=== PATIENT | male | born 1970 | race Caucasian/White ===

== ENCOUNTER 2018-03-11 12:41 | Inpatient (IN) | payer OTHER ==
[2018-03-11 13:08] VITALS: BMI 26.4
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
[2018-03-11] MEDS ORDERED: MAG HYDROX/AL HYDROX/SIMETH 30 ML UNIT-DOSE CUP PO PRN (15:30)
[2018-03-11] MEDS ORDERED: hydrOXYzine PAMOATE 50 MG CAPSULE (FP) PO PRN (15:30)
[2018-03-11] MEDS ORDERED: P-EPHED 60MG/TRIPROLIDI 2.5MG TABLET PO PRN (15:30)
[2018-03-11] MEDS ORDERED: LOPERAMIDE HCL 2 MG CAPSULE PO PRN (15:30)
[2018-03-11] MEDS ORDERED: MAGNESIUM CITRATE 300 ML BOTTLE PO PRN (15:30)
[2018-03-11] MEDS ORDERED: MAGNESIUM HYDROX 2400MG/30ML ORAL SUSPENSION 30 ML CUP PO PRN (15:30)
[2018-03-11] MEDS ORDERED: NICOTINE POLACRILEX 4 MG GUM BC PRN (15:30)
[2018-03-11] MEDS ORDERED: ACETAMINOPHEN 325 MG TABLET (FP) PO PRN (15:30)
[2018-03-11] MEDS ORDERED: chlordiazePOXIDE HCL 25 MG CAPSULE PO PRN (15:30)
[2018-03-11] MEDS ORDERED: guaiFENesin/D-METHORPHAN HB 10 ML UNIT-DOSE CUPS PO PRN (15:30)
[2018-03-11] MEDS ORDERED: MENTHOL/PHENOL 1 EACH UD MM PRN (15:30)
[2018-03-11] MEDS ORDERED: IBUPROFEN 400 MG TABLET (FP) PO PRN (15:30)
[2018-03-11] MEDS ORDERED: AMMONIUM LACTATE 12% LOTION 225 GM BOTTLE TP PRN (15:34)
[2018-03-11] MEDS ORDERED: COLLOIDAL OATMEAL 1 BAR EACH TP PRN (15:34)
[2018-03-11] MEDS ORDERED: chlordiazePOXIDE HCL 25 MG CAPSULE PO ONE (17:30)
[2018-03-11] MEDS ORDERED: BACITRACIN 0.9 GM PACKET TP ONE (17:30)
[2018-03-11] MEDS: chlordiazePOXIDE HCL 25 MG CAPSULE PO SCH ×2 (19:49→22:22)
[2018-03-11] MEDS ORDERED: MELATONIN 5 MG TABLETS PO PRN (22:00)
[2018-03-11] MEDS: THIAMINE HCL 100 MG TABLET (FP) PO SCH (22:22)
[2018-03-12 00:59] LABS: URINE APPEARANCE CLEAR; URINE BILIRUBIN NEGATIVE (<2.0 mg/dL); URINE COLOR YELLOW; URINE GLUCOSE (UA) NEGATIVE (NEGATIVE); URINE KETONE NEGATIVE (NEGATIVE); URINE LEUK ESTERASE NEGATIVE (NEGATIVE); URINE NITRITE NEGATIVE (NEGATIVE); URINE PROTEIN NEGATIVE (NEGATIVE); URINE UROBILINOGEN NEGATIVE mg/dL (0.2-1.0)
[2018-03-12] MEDS: chlordiazePOXIDE HCL 25 MG CAPSULE PO SCH ×4 (05:35→22:15)
[2018-03-12] MEDS: TAMSULOSIN HCL 0.4 MG CAP.ER.24H (FP) PO SCH (09:16)
[2018-03-12 10:08] LABS: HEMATOCRIT 41.7 % (35.4-49); HEMOGLOBIN 13.5 GM/dL (11.7-16.9); MCH 31.3 pg (25.7-33.7); MCHC 32.4 g/dl (32.0-35.9); MEAN CELL VOLUME 96.7 fl (80-96); MEAN PLT VOLUME 9.1 fl (7.5-11.1); PLATELET COUNT 194 K/MM3 (134-434); RBC 4.31 M/mm3 (4.00-5.60); WHITE BLOOD COUNT 13.9 K/mm3 (4.0-10.0)
[2018-03-12] MEDS: PRENATAL VITAMINS W/ FOLIC ACID TABLET (FP) PO SCH (10:14)
[2018-03-12] MEDS: BACITRACIN 0.9 GM PACKET TP SCH (10:14)
--- NOTE | 2018-03-12 10:14 | EKG ---
Test Reason : Blood Pressure : / mmHG Vent. Rate : 070 BPM Atrial Rate : 070 BPM P-R Int : 164 ms QRS Dur : 090 ms QT Int : 426 ms P-R-T Axes : 077 084 059 degrees QTc Int : 460 ms POOR DATA QUALITY, INTERPRETATION MAY BE ADVERSELY AFFECTED SINUS RHYTHM WITH FUSION COMPLEXES OTHERWISE NORMAL ECG NO PREVIOUS ECGS AVAILABLE Confirmed by KALIN LEROY MD ([id number]) on 03/12/2018 10:14:28 AM Referred By: Confirmed By:KALIN LEROY MD
[2018-03-12] MEDS: NICOTINE 21 MG/24 HOURS TOPICAL PATCH TD SCH (10:16)
[2018-03-12 10:19] LABS: ALBUMIN 3.7 g/dl (3.4-5.0); ALK PHOS 79 U/L (45-117); ANION GAP 8 MMOL/L (8-16); BILIRUBIN,TOTAL 0.4 mg/dL (0.2-1); BLOOD UREA NITROGEN 16 mg/dL (7-18); CALCIUM 9.1 mg/dL (8.5-10.1); CHLORIDE 106 mmol/L (98-107); CO2 26 mmol/L (21-32); CREATININE 1.2 mg/dL (0.55-1.3); GLUCOSE,RANDOM 101 mg/dL (74-106); POTASSIUM 4.8 mmol/L (3.5-5.1); SGOT/AST 23 U/L (15-37); SGPT/ALT 30 U/L (13-61); SODIUM 140 mmol/L (136-145); TOT PROT 7.1 g/dl (6.4-8.2)
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
[2018-03-12] MEDS ORDERED: hydrOXYzine PAMOATE 50 MG CAPSULE (FP) PO PRN (17:28)
[2018-03-12] MEDS ORDERED: traZODone HCL 50 MG TABLET (FP) PO PRN (17:28)
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
[2018-03-12] MEDS: LEVOTHYROXINE NA 25 MCG TABLET (FP) PO SCH (18:19)
[2018-03-12] MEDS: traZODone HCL 50 MG TABLET (FP) PO SCH (22:15)
[2018-03-12] MEDS: DIVALPROEX SODIUM 500 MG TABLET E.C. PO SCH (22:15)
[2018-03-12] MEDS: THIAMINE HCL 100 MG TABLET (FP) PO SCH (22:15)
[2018-03-12] MEDS: LITHIUM CARBONATE 300 MG CAPSULE (FP) PO SCH (22:15)
[2018-03-12] MEDS: ALBUTEROL SO4 8 GM HFA INHALER IH PRN (22:18)
[2018-03-13] MEDS: chlordiazePOXIDE HCL 25 MG CAPSULE PO SCH ×2 (05:10→10:18)
[2018-03-13] MEDS: LEVOTHYROXINE NA 25 MCG TABLET (FP) PO SCH (06:37)
[2018-03-13] MEDS: TAMSULOSIN HCL 0.4 MG CAP.ER.24H (FP) PO SCH (07:41)
[2018-03-13] MEDS: LITHIUM CARBONATE 300 MG CAPSULE (FP) PO SCH ×2 (10:17→22:06)
[2018-03-13] MEDS: ALBUTEROL SO4 8 GM HFA INHALER IH PRN (10:17)
[2018-03-13] MEDS: NICOTINE 21 MG/24 HOURS TOPICAL PATCH TD SCH (10:18)
[2018-03-13] MEDS: FLUoxetine HCL 20 MG CAPSULE (FP) PO SCH (10:18)
[2018-03-13] MEDS: BACITRACIN 0.9 GM PACKET TP SCH (10:18)
[2018-03-13] MEDS: DIVALPROEX SODIUM 500 MG TABLET E.C. PO SCH ×2 (10:18→22:06)
[2018-03-13] MEDS: PRENATAL VITAMINS W/ FOLIC ACID TABLET (FP) PO SCH (10:18)
[2018-03-13 11:11] LABS: BASO % 0.7 % (0-2.0); EOS % 6.9 % (0-4.5); HEMATOCRIT 37.7 % (35.4-49); HEMOGLOBIN 12.3 GM/dL (11.7-16.9); LYMPH % 21.6 % (8-40); MCH 31.7 pg (25.7-33.7); MCHC 32.6 g/dl (32.0-35.9); MEAN CELL VOLUME 97.3 fl (80-96); MEAN PLT VOLUME 8.6 fl (7.5-11.1); MONO % 9.3 % (3.8-10.2); NEUT % 61.5 % (42.8-82.8); PLATELET COUNT 155 K/MM3 (134-434); RBC 3.87 M/mm3 (4.00-5.60); RDW 14.6 % (11.9-15.9); WHITE BLOOD COUNT 8.7 K/mm3 (4.0-10.0)
--- NOTE | 2018-03-13 13:50 | PN ---
S CIWA - CIWA Score Nausea/Vomitin Muscle Tremors: 2 Anxiety: 2 Agitation: 2 Paroxysmal Sweats: 1-Minimal Palms Moist Orientation: 0-Oriented Tacttile Disturbances: 1-Very Mild Itch/Numbness Auditory Disturbances: 1-Very Mild Visual Disturbances: 1-Very Mild Sensitivity Headache: 2-Mild CIWA-Ar Total Score: 14 BHS Progress Note (SOAP) Subjective: alert,irritable,anxious,interrupted sleep,tremor Objective: 03/13/18 13:47 Vital Signs Temperature 97.2 F L 03/13/18 10:06 Pulse Rate 79 03/13/18 10:06 Respiratory Rate 18 03/13/18 10:06 Blood Pressure 114/71 03/13/18 10:06 O2 Sat by Pulse Oximetry (%) ekg poor quality nsr 70/min no chest pain,no sob,no dizziness Laboratory Last Values WBC 8.7 K/mm3 (4.0-10.0) 03/13/18 08:00 RBC 3.87 M/mm3 (4.00-5.60) L 03/13/18 08:00 Hgb 12.3 GM/dL (11.7-16.9) 03/13/18 08:00 Hct 37.7 % (35.4-49) 03/13/18 08:00 MCV 97.3 fl (80-96) H 03/13/18 08:00 MCH 31.7 pg (25.7-33.7) 03/13/18 08:00 MCHC 32.6 g/dl (32.0-35.9) 03/13/18 08:00 RDW 14.6 % (11.9-15.9) 03/13/18 08:00 Plt Count 155 K/MM3 (134-434) D 03/13/18 08:00 MPV 8.6 fl (7.5-11.1) 03/13/18 08:00 Absolute Neuts (auto) 5.3 K/mm3 (1.5-8.0) 03/13/18 08:00 Neutrophils % 61.5 % (42.8-82.8) 03/13/18 08:00 Lymphocytes % 21.6 % (8-40) 03/13/18 08:00 Monocytes % 9.3 % (3.8-10.2) 03/13/18 08:00 Eosinophils % 6.9 % (0-4.5) H 03/13/18 08:00 Basophils % 0.7 % (0-2.0) 03/13/18 08:00 Nucleated RBC % 0 % (0-0) 03/13/18 08:00 Sodium 140 mmol/L (136-145) 03/12/18 06:00 Potassium 4.8 mmol/L (3.5-5.1) 03/12/18 06:00 Chloride 106 mmol/L (98-107) 03/12/18 06:00 Carbon Dioxide 26 mmol/L (21-32) 03/12/18 06:00 Anion Gap 8 MMOL/L (8-16) 03/12/18 06:00 BUN 16 mg/dL (7-18) 03/12/18 06:00 Creatinine 1.2 mg/dL (0.55-1.3) 03/12/18 06:00 Creat Clearance w eGFR > 60 (>60) 03/12/18 06:00 Random Glucose 101 mg/dL (74-106) 03/12/18 06:00 Calcium 9.1 mg/dL (8.5-10.1) 03/12/18 06:00 Total Bilirubin 0.4 mg/dL (0.2-1) 03/12/18 06:00 AST 23 U/L (15-37) 03/12/18 06:00 ALT 30 U/L (13-61) 03/12/18 06:00 Alkaline Phosphatase 79 U/L (45-117) 03/12/18 06:00 Total Protein 7.1 g/dl (6.4-8.2) 03/12/18 06:00 Albumin 3.7 g/dl (3.4-5.0) 03/12/18 06:00 Urine Color Yellow 03/12/18 00:30 Urine Appearance Clear 03/12/18 00:30 Urine pH 5.0 (5.0-8.0) 03/12/18 00:30 Ur Specific [place] 1.013 (1.010-1.035) 03/12/18 00:30 Urine Protein Negative (NEGATIVE) 03/12/18 00:30 Urine Glucose (UA) Negative (NEGATIVE) 03/12/18 00:30 Urine Ketones Negative (NEGATIVE) 03/12/18 00:30 Urine Blood Negative (NEGATIVE) 03/12/18 00:30 Urine Nitrite Negative (NEGATIVE) 03/12/18 00:30 Urine Bilirubin Negative (<2.0 mg/dL) 03/12/18 00:30 Urine Urobilinogen Negative mg/dL (0.2-1.0) 03/12/18 00:30 Ur Leukocyte Esterase Negative (NEGATIVE) 03/12/18 00:30 Valproic Acid 5.4 ug/ml (50-100) L 03/13/18 08:10 [place] 0.3 MEQ/L (0.6-1.2) L 03/12/18 12:00 RPR Titer Nonreactive (NONREACTIVE) 03/12/18 06:00 Assessment: 03/13/18 13:49 withdrawal symptom Plan: continue detox
[2018-03-13] MEDS: chlordiazePOXIDE 5 MG CAPSULE PO SCH ×2 (17:31→22:06)
[2018-03-13] MEDS: traZODone HCL 50 MG TABLET (FP) PO SCH (22:06)
[2018-03-13] MEDS: THIAMINE HCL 100 MG TABLET (FP) PO SCH (22:06)
[2018-03-14] MEDS: chlordiazePOXIDE 5 MG CAPSULE PO SCH ×2 (05:17→10:22)
[2018-03-14] MEDS: LEVOTHYROXINE NA 25 MCG TABLET (FP) PO SCH (06:45)
[2018-03-14] MEDS: TAMSULOSIN HCL 0.4 MG CAP.ER.24H (FP) PO SCH (07:37)
[2018-03-14] MEDS: FLUoxetine HCL 20 MG CAPSULE (FP) PO SCH (10:21)
[2018-03-14] MEDS: NICOTINE 21 MG/24 HOURS TOPICAL PATCH TD SCH (10:22)
[2018-03-14] MEDS: LITHIUM CARBONATE 300 MG CAPSULE (FP) PO SCH ×2 (10:22→22:29)
[2018-03-14] MEDS: DIVALPROEX SODIUM 500 MG TABLET E.C. PO SCH ×2 (10:22→22:29)
[2018-03-14] MEDS: BACITRACIN 0.9 GM PACKET TP SCH (10:22)
[2018-03-14] MEDS: PRENATAL VITAMINS W/ FOLIC ACID TABLET (FP) PO SCH (10:22)
--- NOTE | 2018-03-14 13:46 | PN ---
BHS Progress Note (SOAP) Subjective: Tremor, chills, interrupted sleep Objective: 03/14/18 13:44 Last Vital Signs Temp Pulse Resp BP Pulse Ox 97.6 F 80 20 104/71 03/14/18 09:30 03/14/18 09:30 03/14/18 09:30 03/14/18 09:30 Laboratory Tests 03/12/18 03/12/18 03/12/18 00:30 06:00 06:00 WBC 13.9 H RBC 4.31 Hgb 13.5 Hct 41.7 MCV 96.7 H MCH 31.3 MCHC 32.4 RDW 15.0 Plt Count 194 MPV 9.1 Absolute Neuts (auto) Neutrophils % Lymphocytes % Monocytes % Eosinophils % Basophils % Nucleated RBC % Sodium 140 Potassium 4.8 Chloride 106 Carbon Dioxide 26 Anion Gap 8 BUN 16 Creatinine 1.2 Creat Clearance w eGFR > 60 Random Glucose 101 Calcium 9.1 Total Bilirubin 0.4 AST 23 ALT 30 Alkaline Phosphatase 79 Total Protein 7.1 Albumin 3.7 Urine Color Yellow Urine Appearance Clear Urine pH 5.0 Ur Specific [place] 1.013 Urine Protein Negative Urine Glucose (UA) Negative Urine Ketones Negative Urine Blood Negative Urine Nitrite Negative Urine Bilirubin Negative Urine Urobilinogen Negative Ur Leukocyte Esterase Negative Valproic Acid [place] RPR Titer 03/12/18 03/12/18 03/13/18 06:00 12:00 08:00 WBC 8.7 RBC 3.87 L Hgb 12.3 Hct 37.7 MCV 97.3 H MCH 31.7 MCHC 32.6 RDW 14.6 Plt Count 155 D MPV 8.6 Absolute Neuts (auto) 5.3 Neutrophils % 61.5 Lymphocytes % 21.6 Monocytes % 9.3 Eosinophils % 6.9 H Basophils % 0.7 Nucleated RBC % 0 Sodium Potassium Chloride Carbon Dioxide Anion Gap BUN Creatinine Creat Clearance w eGFR Random Glucose Calcium Total Bilirubin AST ALT Alkaline Phosphatase Total Protein Albumin Urine Color Urine Appearance Urine pH Ur Specific [place] Urine Protein Urine Glucose (UA) Urine Ketones Urine Blood Urine Nitrite Urine Bilirubin Urine Urobilinogen Ur Leukocyte Esterase Valproic Acid [place] 0.3 L RPR Titer Nonreactive 03/13/18 08:10 WBC RBC Hgb Hct MCV MCH MCHC RDW Plt Count MPV Absolute Neuts (auto) Neutrophils % Lymphocytes % Monocytes % Eosinophils % Basophils % Nucleated RBC % Sodium Potassium Chloride Carbon Dioxide Anion Gap BUN Creatinine Creat Clearance w eGFR Random Glucose Calcium Total Bilirubin AST ALT Alkaline Phosphatase Total Protein Albumin Urine Color Urine Appearance Urine pH Ur Specific [place] Urine Protein Urine Glucose (UA) Urine Ketones Urine Blood Urine Nitrite Urine Bilirubin Urine Urobilinogen Ur Leukocyte Esterase Valproic Acid 5.4 L [place] RPR Titer Labs reviewed Assessment: 03/14/18 13:45 Withdrawal sxs Plan: Continue detox Encouraged PO water intake
[2018-03-14] MEDS: chlordiazePOXIDE HCL 10 MG CAPSULE PO SCH ×2 (17:39→22:29)
[2018-03-14] MEDS: THIAMINE HCL 100 MG TABLET (FP) PO SCH (22:29)
[2018-03-14] MEDS: traZODone HCL 50 MG TABLET (FP) PO SCH (22:29)
[2018-03-15] MEDS: chlordiazePOXIDE HCL 10 MG CAPSULE PO SCH ×2 (05:12→10:29)
[2018-03-15] MEDS: LEVOTHYROXINE NA 25 MCG TABLET (FP) PO SCH (06:29)
--- NOTE | 2018-03-15 08:55 | DS ---
[facility] Detox Discharge Summary Admission Date: 03/11/18 Discharge Date: 03/15/18 - History Present History: Alcohol Dependence Additional Comments: Patient medically stable. Patient to follow up with primary care provider in 1 - 2 weeks. - Physical Exam Results Vital Signs: Vital Signs Temperature 97.5 F L 03/15/18 05:59 Pulse Rate 58 L 03/15/18 05:59 Respiratory Rate 18 03/15/18 06:30 Blood Pressure 98/56 L 03/15/18 05:59 O2 Sat by Pulse Oximetry (%) Pertinent Admission Physical Exam Findings: Vital Signs Temperature 96.4 F L 03/15/18 09:11 Pulse Rate 57 L 03/15/18 09:11 Respiratory Rate 18 03/15/18 09:11 Blood Pressure 108/63 03/15/18 09:11 O2 Sat by Pulse Oximetry (%) Laboratory Last Values WBC 8.7 K/mm3 (4.0-10.0) 03/13/18 08:00 RBC 3.87 M/mm3 (4.00-5.60) L 03/13/18 08:00 Hgb 12.3 GM/dL (11.7-16.9) 03/13/18 08:00 Hct 37.7 % (35.4-49) 03/13/18 08:00 MCV 97.3 fl (80-96) H 03/13/18 08:00 MCH 31.7 pg (25.7-33.7) 03/13/18 08:00 MCHC 32.6 g/dl (32.0-35.9) 03/13/18 08:00 RDW 14.6 % (11.9-15.9) 03/13/18 08:00 Plt Count 155 K/MM3 (134-434) D 03/13/18 08:00 MPV 8.6 fl (7.5-11.1) 03/13/18 08:00 Absolute Neuts (auto) 5.3 K/mm3 (1.5-8.0) 03/13/18 08:00 Neutrophils % 61.5 % (42.8-82.8) 03/13/18 08:00 Lymphocytes % 21.6 % (8-40) 03/13/18 08:00 Monocytes % 9.3 % (3.8-10.2) 03/13/18 08:00 Eosinophils % 6.9 % (0-4.5) H 03/13/18 08:00 Basophils % 0.7 % (0-2.0) 03/13/18 08:00 Nucleated RBC % 0 % (0-0) 03/13/18 08:00 Sodium 140 mmol/L (136-145) 03/12/18 06:00 Potassium 4.8 mmol/L (3.5-5.1) 03/12/18 06:00 Chloride 106 mmol/L (98-107) 03/12/18 06:00 Carbon Dioxide 26 mmol/L (21-32) 03/12/18 06:00 Anion Gap 8 MMOL/L (8-16) 03/12/18 06:00 BUN 16 mg/dL (7-18) 03/12/18 06:00 Creatinine 1.2 mg/dL (0.55-1.3) 03/12/18 06:00 Creat Clearance w eGFR > 60 (>60) 03/12/18 06:00 Random Glucose 101 mg/dL (74-106) 03/12/18 06:00 Calcium 9.1 mg/dL (8.5-10.1) 03/12/18 06:00 Total Bilirubin 0.4 mg/dL (0.2-1) 03/12/18 06:00 AST 23 U/L (15-37) 03/12/18 06:00 ALT 30 U/L (13-61) 03/12/18 06:00 Alkaline Phosphatase 79 U/L (45-117) 03/12/18 06:00 Total Protein 7.1 g/dl (6.4-8.2) 03/12/18 06:00 Albumin 3.7 g/dl (3.4-5.0) 03/12/18 06:00 Urine Color Yellow 03/12/18 00:30 Urine Appearance Clear 03/12/18 00:30 Urine pH 5.0 (5.0-8.0) 03/12/18 00:30 Ur Specific [place] 1.013 (1.010-1.035) 03/12/18 00:30 Urine Protein Negative (NEGATIVE) 03/12/18 00:30 Urine Glucose (UA) Negative (NEGATIVE) 03/12/18 00:30 Urine Ketones Negative (NEGATIVE) 03/12/18 00:30 Urine Blood Negative (NEGATIVE) 03/12/18 00:30 Urine Nitrite Negative (NEGATIVE) 03/12/18 00:30 Urine Bilirubin Negative (<2.0 mg/dL) 03/12/18 00:30 Urine Urobilinogen Negative mg/dL (0.2-1.0) 03/12/18 00:30 Ur Leukocyte Esterase Negative (NEGATIVE) 03/12/18 00:30 Valproic Acid 5.4 ug/ml (50-100) L 03/13/18 08:10 [place] 0.3 MEQ/L (0.6-1.2) L 03/12/18 12:00 RPR Titer Nonreactive (NONREACTIVE) 03/12/18 06:00 - Treatment Hospital Course: Detox Protocol Followed, Detoxed Safely, Responded well, Discharged Condition Good, Rehab Referral Accepted Patient has Accepted a Rehab Referral to: [facility] - Medication Discharge Medications: Ambulatory Orders Albuterol Sulfate Inhaler - [Ventolin Hfa Inhaler -] 2 inh PO Q4H PRN 03/11/18 Divalproex Sodium 1,000 mg PO Q12H 03/11/18 Fluoxetine HCl [Prozac -] 60 mg PO DAILY 03/11/18 Levothyroxine [Synthroid -] 50 mcg PO DAILY 03/11/18 [place] Carbonate [Eskalith -] 300 mg PO AM 03/11/18 [place] Carbonate [Eskalith -] 600 mg PO HS 03/11/18 Tamsulosin HCl [Flomax] 0.4 mg PO DAILY 03/11/18 hydrOXYzine PAMOATE [Vistaril -] 50 mg PO TID PRN 03/11/18 traZODone HCL [Trazodone HCl] 50 mg PO HS PRN 03/11/18 Albuterol Sulfate Inhaler - [Ventolin HFA Inhaler -] 2 puff IH Q4H PRN #1 inhaler 03/15/18 Levothyroxine [Synthroid -] 50 mcg PO ACBK #30 tablet 03/15/18 Tamsulosin HCl [Flomax -] 0.4 mg PO DAILY@0830 #30 cap.er.[id number] 03/15/18 - Diagnosis (1) Alcohol dependence with withdrawal Current Visit: Yes Status: Acute Qualifiers: Complication of substance-induced condition: uncomplicated Qualified Code(s ): F10.230 - Alcohol dependence with withdrawal, uncomplicated (2) BPH (benign prostatic hyperplasia) Current Visit: Yes Status: Chronic Qualifiers: Lower urinary tract symptom presence: symptoms present Lower urinary tract symptom detail: unspecified Qualified Code(s): N40.1 - Benign prostatic hyperplasia with lower urinary tract symptoms (3) COPD (chronic obstructive pulmonary disease) Current Visit: Yes Status: Chronic Qualifiers: COPD type: unspecified COPD Qualified Code(s): J44.9 - Chronic obstructive pulmonary disease, unspecified (4) Hypothyroidism Current Visit: Yes Status: Chronic Qualifiers: Hypothyroidism type: acquired Qualified Code(s): E03.9 - Hypothyroidism, unspecified (5) Nicotine dependence Current Visit: Yes Status: Chronic Qualifiers: Nicotine product type: cigarettes Substance use status: uncomplicated Qualified Code(s): F17.210 - Nicotine dependence, cigarettes, uncomplicated (6) Non-compliant patient Current Visit: Yes Status: Chronic - AMA Did Patient Leave Against Medical Advice: No
[2018-03-15] MEDS: TAMSULOSIN HCL 0.4 MG CAP.ER.24H (FP) PO SCH (09:28)
[2018-03-15] MEDS: LITHIUM CARBONATE 300 MG CAPSULE (FP) PO SCH (10:27)
[2018-03-15] MEDS: DIVALPROEX SODIUM 500 MG TABLET E.C. PO SCH (10:27)
[2018-03-15] MEDS: BACITRACIN 0.9 GM PACKET TP SCH (10:27)
[2018-03-15] MEDS: FLUoxetine HCL 20 MG CAPSULE (FP) PO SCH (10:28)
[2018-03-15] MEDS: PRENATAL VITAMINS W/ FOLIC ACID TABLET (FP) PO SCH (10:28)
[2018-03-15] MEDS: NICOTINE 21 MG/24 HOURS TOPICAL PATCH TD SCH (10:28)
--- NOTE | 2018-03-15 15:22 | PN ---
[facility] Progress Note Note: Vital Signs Temperature 97.1 F L 03/15/18 13:45 Pulse Rate 72 03/15/18 13:45 Respiratory Rate 18 03/15/18 13:45 Blood Pressure 118/73 03/15/18 13:45 O2 Sat by Pulse Oximetry (%) cancel d/c today. patient is scheduled to attend rehab tomorrow morning at [facility]. continue to monitor
[2018-03-15 17:31] VITALS: BP 108/66; PULSE 57; TEMP 97.4
== END 2018-03-15 18:01 | disposition other institution (70) | DRG 775 ==
LOC: YASAS 12:41 → Y3N 17:05
PROC: HZ2ZZZZ Detoxification Services for Substance Abuse Treatment (ICD-10-PCS; principal; 2018-03-11)
DX: F10.230 Alcohol dependence with withdrawal, uncomplicated (principal); F17.210 Nicotine dependence, cigarettes, uncomplicated; F31.9 Bipolar disorder, unspecified; F19.24 Other psychoactive substance dependence with psychoactive substance-induced mood disorder; J45.909 Unspecified asthma, uncomplicated; J44.9 Chronic obstructive pulmonary disease, unspecified; N40.0 Benign prostatic hyperplasia without lower urinary tract symptoms; E03.9 Hypothyroidism, unspecified; G47.00 Insomnia, unspecified; D72.829 Elevated white blood cell count, unspecified; Z91.19 Patient's noncompliance with other medical treatment and regimen; Z91.5 Personal history of self-harm; Z59.0 Homelessness
CPT/HCPCS: 36415; 80053; 80164; 80178; 81003; 85025; 85027; 86593; 93005; 93010

== ENCOUNTER 2018-03-15 17:45 | Inpatient (IN) | payer OTHER ==
--- NOTE | 2018-03-15 16:20 | HP ---
[facility] Rehab Assess/Revision - Admission History Admitted to Rehab from: [facility] [place] Date of Admission to Rehab: 03/15/18 - Findings Detox History & Physical reviewed: Yes Concur with findings: Yes Inpatient Rehab Admission - Initial Determination Are CD services needed?: Yes Free of communicable disease: Yes Not in need of hospitalization: Yes - Rehab Admission Criteria Previous failed treatment: Yes Poor recovery environment: Yes Comorbidities: Yes Lacks judgement: Yes Patient is meeting Inpatient Rehab admission criteria:: Yes
[~2018-03-15 17:45] MED LIST: ACETAMINOPHEN 325 MG TABLET (FP) PO PRN; IBUPROFEN 400 MG TABLET (FP) PO PRN; LOPERAMIDE HCL 2 MG CAPSULE PO PRN; MAG HYDROX/AL HYDROX/SIMETH 30 ML UNIT-DOSE CUP PO PRN; MAGNESIUM CITRATE 300 ML BOTTLE PO PRN; MAGNESIUM HYDROX 2400MG/30ML ORAL SUSPENSION 30 ML CUP PO PRN; MENTHOL/PHENOL 1 EACH UD MM PRN; P-EPHED 60MG/TRIPROLIDI 2.5MG TABLET PO PRN; guaiFENesin/D-METHORPHAN HB 10 ML UNIT-DOSE CUPS PO PRN
--- NOTE | 2018-03-15 20:20 | PN ---
[facility] Progress Note Note: Psychiatrist transition lead note: Called by nursing staff to order medication for newly admitted patient from detox. Medication reconciliation done. Depakote 1000 mg po BID, [place] 300 mg daily & 600 mg HS, Trazadone 50 mg po HS, Prozac 60 mg po daily and Vistaril 50 mg po TID ordered
[2018-03-15] MEDS ORDERED: MELATONIN 5 MG TABLETS PO PRN (22:00)
[2018-03-15] MEDS: LITHIUM CARBONATE 300 MG CAPSULE (FP) PO SCH (22:25)
[2018-03-15] MEDS: DIVALPROEX SODIUM 500 MG TABLET E.C. PO SCH (22:25)
[2018-03-15] MEDS: THIAMINE HCL 100 MG TABLET (FP) PO SCH (22:25)
[2018-03-15] MEDS: traZODone HCL 50 MG TABLET (FP) PO PRN (22:27)
[2018-03-16] MEDS: LITHIUM CARBONATE 300 MG CAPSULE (FP) PO SCH ×2 (06:07→21:43)
--- NOTE | 2018-03-16 06:29 | HP ---
Psychiatrist Admission - Data Date of interview: 03/16/18 Admission source: 3N Identifying data: This is the first [facility] admission for this 47 years old male, father of a 25 years daughter, unemployed, homeless Medical History: Significant for COPD, hypothyroidism, decreased vision in right eye and benign prostatic hyperplasia (BPH) and history of fracture of right orbit. Smokes 10 cigarettes daily Psychiatric History: Patient repports being diagnosed with Bipolar Disorder and OCD in 2016. Reports history of multiple psychiatric hospitalizations ([facility], [facility], [facility]). Told medical writer that from November 2017, he has had 4 admissions 2 each to [facility] and [facility]. Most recent one ws in [facility] in January 2018 for depression, anxiety and trying to burn himself. He was discharged on [place] 300 mg daily & 600 mg HS, Depakote 1000 mg po BID, Prozac 60 mg po daily, Trazadone 50 mg po HS and Vistaril 50 mg po TID prn. Reports taking medications on & off for the past 2 weeks. Reports receiving psychiatric outpatient services at the [facility] in [facility]. He saw Dr Escobar on 03/12/18 while in detox and he was prescribed Depakote 500 mg po BID, Prozac 20 mg po daily, [place] 300 mg po BID, Vistaril 50 mg po TID prn. Patient reports one suicide attempt via deliberate ingestion of industrial ecologist (2014). At present, reports feeling depressed, anxious and sleeping poorly Physical/Sexual Abuse/Trauma History: Denies history of emotional, physical or sexual abuse as wel as DV relationship. No service Additional Comment: Reports multile previous arrsets including 3 felony convictions on charges of DWI. Denie being on parole/probation Vital Signs: Vital Signs - 24 hr 03/15/18 03/16/18 03/16/18 18:17 00:30 03:29 Temperature 97.8 F Pulse Rate 71 Respiratory 18 16 16 Rate Blood Pressure 113/58 L Allergies/Adverse Reactions: Allergies Allergy/AdvReac Type Severity Reaction Status Date / Time No Known Allergies Allergy Verified 03/11/18 16:24 Date of last physical exam: 03/11/18 Concur with the findings of this exam: Yes - Substance Abuse/Tx History Hx Alcohol Use: Yes Substance Use Type: Alcohol (Started drinking alcohol at age 22, consumes a nip of vodka & 8x 25oz of erica daddy daily. Last drank on 03/10/18) Hx Substance Use Treatment: Yes (2 previous inpt detox admissions. First inpt rehab) Mental Status Exam - Mental Status Exam Alert and Oriented to: Time, Place, Person Cognitive Function: Fair Patient Appearance: Well Groomed Mood: Depressed, Anxious Affect: Appropriate Patient Behavior: Cooperative Speech Pattern: Clear Voice Loudness: Normal Thought Process: Intact, Goal Oriented Thought Disorder: Not Present Hallucinations: Denies Suicidal Ideation: Denies Homicidal Ideation: Denies Insight/Judgement: Fair Sleep: Poorly Appetite: Good Muscle strength/Tone: Normal Gait/Station: Normal Psychiatric Findings - Problem List ([place] 1, 2,3) (1) Alcohol dependence Current Visit: Yes Status: Acute (2) Nicotine dependence Current Visit: No Status: Chronic Qualifiers: Nicotine product type: cigarettes Substance use status: uncomplicated Qualified Code(s): F17.210 - Nicotine dependence, cigarettes, uncomplicated (3) Bipolar disorder Current Visit: No Status: Chronic (4) OCD (obsessive compulsive disorder) Current Visit: Yes Status: Chronic (5) Alcohol-induced mood disorder Current Visit: Yes Status: Acute (6) Alcohol-induced sleep disorder Current Visit: Yes Status: Acute (7) BPH (benign prostatic hyperplasia) Current Visit: No Status: Chronic Qualifiers: Lower urinary tract symptom presence: symptoms present Lower urinary tract symptom detail: unspecified Qualified Code(s): N40.1 - Benign prostatic hyperplasia with lower urinary tract symptoms (8) COPD (chronic obstructive pulmonary disease) Current Visit: No Status: Chronic Qualifiers: COPD type: unspecified COPD Qualified Code(s): J44.9 - Chronic obstructive pulmonary disease, unspecified (9) Hypothyroidism Current Visit: No Status: Chronic Qualifiers: Hypothyroidism type: acquired Qualified Code(s): E03.9 - Hypothyroidism, unspecified - Initial Treatment Plan Initial Treatment Plan: 1) Start Prozac 60 mg po daily, Depakote 1000 mg po BID ( level 5.4 on 03/13/18), [place] 300 mg daily & 600 mg HS(level 0.3 on 03/12/18 ), Trazadone 50 mg po HS and Vistaril 50 mg po TID prn. 2) Repeat chemistry, Valproic Acid anf [place] levels on 03/02/18. 3) Monitor progress
[2018-03-16] MEDS: DIVALPROEX SODIUM 500 MG TABLET E.C. PO SCH ×2 (07:43→21:43)
[2018-03-16] MEDS: FLUoxetine HCL 20 MG CAPSULE (FP) PO SCH (09:42)
[2018-03-16] MEDS: PRENATAL VITAMINS W/ FOLIC ACID TABLET (FP) PO SCH (09:42)
[2018-03-16] MEDS: THIAMINE HCL 100 MG TABLET (FP) PO SCH (21:43)
[2018-03-16] MEDS: traZODone HCL 50 MG TABLET (FP) PO PRN (21:43)
[2018-03-17] MEDS ORDERED: LEVOTHYROXINE NA 25 MCG TABLET (FP) PO ONE (08:28)
[2018-03-17] MEDS: DIVALPROEX SODIUM 500 MG TABLET E.C. PO SCH ×2 (09:46→20:58)
[2018-03-17] MEDS: FLUoxetine HCL 20 MG CAPSULE (FP) PO SCH (09:46)
[2018-03-17] MEDS: PRENATAL VITAMINS W/ FOLIC ACID TABLET (FP) PO SCH (09:47)
[2018-03-17] MEDS: TAMSULOSIN HCL 0.4 MG CAP PO SCH (09:47)
[2018-03-17] MEDS: LITHIUM CARBONATE 300 MG CAPSULE (FP) PO SCH ×2 (09:47→21:00)
[2018-03-17] MEDS: THIAMINE HCL 100 MG TABLET (FP) PO SCH (21:00)
[2018-03-18] MEDS: LEVOTHYROXINE NA 25 MCG TABLET (FP) PO SCH (06:20)
[2018-03-18] MEDS: LITHIUM CARBONATE 300 MG CAPSULE (FP) PO SCH ×2 (06:20→21:30)
[2018-03-18] MEDS ORDERED: traZODone HCL 50 MG TABLET (FP) PO PRN (08:57)
[2018-03-18] MEDS: FLUoxetine HCL 20 MG CAPSULE (FP) PO SCH (09:32)
[2018-03-18] MEDS: DIVALPROEX SODIUM 500 MG TABLET E.C. PO SCH ×3 (09:32→21:30)
[2018-03-18] MEDS: PRENATAL VITAMINS W/ FOLIC ACID TABLET (FP) PO SCH (09:32)
[2018-03-18] MEDS: TAMSULOSIN HCL 0.4 MG CAP PO SCH (09:33)
[2018-03-18] MEDS ORDERED: LITHIUM CARBONATE 300 MG CAPSULE (FP) PO SCH (10:00)
[2018-03-18] MEDS: hydrOXYzine PAMOATE 50 MG CAPSULE (FP) PO PRN ×2 (14:07→21:30)
[2018-03-18] MEDS: THIAMINE HCL 100 MG TABLET (FP) PO SCH (21:30)
[2018-03-18] MEDS: traZODone HCL 50 MG TABLET (FP) PO SCH (21:31)
[2018-03-19] MEDS: LEVOTHYROXINE NA 25 MCG TABLET (FP) PO SCH (06:17)
[2018-03-19] MEDS: TAMSULOSIN HCL 0.4 MG CAP PO SCH (09:30)
[2018-03-19] MEDS: FLUoxetine HCL 20 MG CAPSULE (FP) PO SCH (09:31)
[2018-03-19] MEDS: DIVALPROEX SODIUM 500 MG TABLET E.C. PO SCH ×2 (09:31→21:35)
[2018-03-19] MEDS: LITHIUM CARBONATE 300 MG CAPSULE (FP) PO SCH ×2 (09:31→21:35)
[2018-03-19] MEDS: PRENATAL VITAMINS W/ FOLIC ACID TABLET (FP) PO SCH (09:31)
[2018-03-19] MEDS: hydrOXYzine PAMOATE 50 MG CAPSULE (FP) PO PRN (21:35)
[2018-03-19] MEDS: traZODone HCL 50 MG TABLET (FP) PO SCH (21:35)
[2018-03-19] MEDS: THIAMINE HCL 100 MG TABLET (FP) PO SCH (21:35)
[2018-03-20] MEDS: LEVOTHYROXINE NA 25 MCG TABLET (FP) PO SCH (06:03)
[2018-03-20] MEDS: TAMSULOSIN HCL 0.4 MG CAP PO SCH (07:49)
[2018-03-20] MEDS: PRENATAL VITAMINS W/ FOLIC ACID TABLET (FP) PO SCH (09:32)
[2018-03-20] MEDS: FLUoxetine HCL 20 MG CAPSULE (FP) PO SCH (09:32)
[2018-03-20] MEDS: LITHIUM CARBONATE 300 MG CAPSULE (FP) PO SCH ×2 (09:32→21:08)
[2018-03-20] MEDS: DIVALPROEX SODIUM 500 MG TABLET E.C. PO SCH ×2 (09:32→21:08)
[2018-03-20] MEDS: THIAMINE HCL 100 MG TABLET (FP) PO SCH (21:08)
[2018-03-20] MEDS: traZODone HCL 50 MG TABLET (FP) PO SCH (21:08)
[2018-03-21] MEDS: LEVOTHYROXINE NA 25 MCG TABLET (FP) PO SCH (06:07)
[2018-03-21] MEDS: TAMSULOSIN HCL 0.4 MG CAP PO SCH (07:46)
[2018-03-21] MEDS: DIVALPROEX SODIUM 500 MG TABLET E.C. PO SCH ×2 (09:36→21:02)
[2018-03-21] MEDS: LITHIUM CARBONATE 300 MG CAPSULE (FP) PO SCH ×2 (09:37→21:02)
[2018-03-21] MEDS: FLUoxetine HCL 20 MG CAPSULE (FP) PO SCH (09:37)
[2018-03-21] MEDS: PRENATAL VITAMINS W/ FOLIC ACID TABLET (FP) PO SCH (09:37)
[2018-03-21] MEDS: THIAMINE HCL 100 MG TABLET (FP) PO SCH (21:02)
[2018-03-21] MEDS: traZODone HCL 50 MG TABLET (FP) PO SCH (21:02)
[2018-03-22] MEDS: LEVOTHYROXINE NA 25 MCG TABLET (FP) PO SCH (06:10)
[2018-03-22] MEDS: TAMSULOSIN HCL 0.4 MG CAP PO SCH (08:42)
[2018-03-22] MEDS: PRENATAL VITAMINS W/ FOLIC ACID TABLET (FP) PO SCH (09:42)
[2018-03-22] MEDS: LITHIUM CARBONATE 300 MG CAPSULE (FP) PO SCH ×2 (09:42→21:28)
[2018-03-22] MEDS: FLUoxetine HCL 20 MG CAPSULE (FP) PO SCH (09:42)
[2018-03-22] MEDS: DIVALPROEX SODIUM 500 MG TABLET E.C. PO SCH ×2 (09:42→21:28)
[2018-03-22] MEDS: hydrOXYzine PAMOATE 50 MG CAPSULE (FP) PO PRN (21:28)
[2018-03-22] MEDS: traZODone HCL 50 MG TABLET (FP) PO SCH (21:28)
[2018-03-22] MEDS: THIAMINE HCL 100 MG TABLET (FP) PO SCH (21:28)
[2018-03-23] MEDS: LEVOTHYROXINE NA 25 MCG TABLET (FP) PO SCH (06:35)
[2018-03-23] MEDS: TAMSULOSIN HCL 0.4 MG CAP PO SCH (07:45)
[2018-03-23] MEDS: PRENATAL VITAMINS W/ FOLIC ACID TABLET (FP) PO SCH (09:52)
[2018-03-23] MEDS: FLUoxetine HCL 20 MG CAPSULE (FP) PO SCH (09:52)
[2018-03-23] MEDS: DIVALPROEX SODIUM 500 MG TABLET E.C. PO SCH ×2 (09:52→21:38)
[2018-03-23] MEDS: hydrOXYzine PAMOATE 50 MG CAPSULE (FP) PO PRN ×2 (09:53→21:38)
[2018-03-23] MEDS: LITHIUM CARBONATE 300 MG CAPSULE (FP) PO SCH ×2 (09:53→21:40)
[2018-03-23] MEDS: traZODone HCL 50 MG TABLET (FP) PO SCH (21:38)
[2018-03-23] MEDS: THIAMINE HCL 100 MG TABLET (FP) PO SCH (21:38)
[2018-03-24] MEDS: LEVOTHYROXINE NA 25 MCG TABLET (FP) PO SCH (05:59)
[2018-03-24] MEDS: TAMSULOSIN HCL 0.4 MG CAP PO SCH (09:30)
[2018-03-24] MEDS: FLUoxetine HCL 20 MG CAPSULE (FP) PO SCH (09:40)
[2018-03-24] MEDS: LITHIUM CARBONATE 300 MG CAPSULE (FP) PO SCH ×2 (09:41→21:38)
[2018-03-24] MEDS: DIVALPROEX SODIUM 500 MG TABLET E.C. PO SCH ×2 (09:41→21:38)
[2018-03-24] MEDS: PRENATAL VITAMINS W/ FOLIC ACID TABLET (FP) PO SCH (09:41)
[2018-03-24] MEDS: hydrOXYzine PAMOATE 50 MG CAPSULE (FP) PO PRN (12:10)
[2018-03-24] MEDS: THIAMINE HCL 100 MG TABLET (FP) PO SCH (21:38)
[2018-03-24] MEDS: traZODone HCL 50 MG TABLET (FP) PO SCH (21:38)
[2018-03-25] MEDS: LEVOTHYROXINE NA 25 MCG TABLET (FP) PO SCH (06:08)
[2018-03-25] MEDS: TAMSULOSIN HCL 0.4 MG CAP PO SCH (07:46)
[2018-03-25] MEDS: DIVALPROEX SODIUM 500 MG TABLET E.C. PO SCH ×2 (10:10→21:14)
[2018-03-25] MEDS: LITHIUM CARBONATE 300 MG CAPSULE (FP) PO SCH ×2 (10:10→21:15)
[2018-03-25] MEDS: FLUoxetine HCL 20 MG CAPSULE (FP) PO SCH (10:11)
[2018-03-25] MEDS: hydrOXYzine PAMOATE 50 MG CAPSULE (FP) PO PRN ×2 (10:11→21:15)
[2018-03-25] MEDS: PRENATAL VITAMINS W/ FOLIC ACID TABLET (FP) PO SCH (10:11)
[2018-03-25] MEDS: traZODone HCL 50 MG TABLET (FP) PO SCH (21:14)
[2018-03-25] MEDS: THIAMINE HCL 100 MG TABLET (FP) PO SCH (21:14)
[2018-03-26] MEDS: LEVOTHYROXINE NA 25 MCG TABLET (FP) PO SCH (06:04)
[2018-03-26] MEDS: TAMSULOSIN HCL 0.4 MG CAP PO SCH (08:37)
[2018-03-26] MEDS: FLUoxetine HCL 20 MG CAPSULE (FP) PO SCH (09:37)
[2018-03-26] MEDS: LITHIUM CARBONATE 300 MG CAPSULE (FP) PO SCH ×2 (09:37→21:36)
[2018-03-26] MEDS: PRENATAL VITAMINS W/ FOLIC ACID TABLET (FP) PO SCH (09:37)
[2018-03-26] MEDS: DIVALPROEX SODIUM 500 MG TABLET E.C. PO SCH ×2 (09:37→21:36)
[2018-03-26] MEDS: traZODone HCL 50 MG TABLET (FP) PO SCH (21:36)
[2018-03-26] MEDS: THIAMINE HCL 100 MG TABLET (FP) PO SCH (21:36)
[2018-03-26] MEDS: hydrOXYzine PAMOATE 50 MG CAPSULE (FP) PO PRN (21:37)
[2018-03-27] MEDS: LEVOTHYROXINE NA 25 MCG TABLET (FP) PO SCH (06:00)
[2018-03-27] MEDS: TAMSULOSIN HCL 0.4 MG CAP PO SCH (09:30)
[2018-03-27] MEDS: FLUoxetine HCL 20 MG CAPSULE (FP) PO SCH (10:05)
[2018-03-27] MEDS: DIVALPROEX SODIUM 500 MG TABLET E.C. PO SCH ×2 (10:05→21:43)
[2018-03-27] MEDS: PRENATAL VITAMINS W/ FOLIC ACID TABLET (FP) PO SCH (10:05)
[2018-03-27] MEDS: LITHIUM CARBONATE 300 MG CAPSULE (FP) PO SCH ×2 (10:06→21:43)
[2018-03-27] MEDS: THIAMINE HCL 100 MG TABLET (FP) PO SCH (21:42)
[2018-03-27] MEDS: traZODone HCL 50 MG TABLET (FP) PO SCH (21:43)
[2018-03-27] MEDS: hydrOXYzine PAMOATE 50 MG CAPSULE (FP) PO PRN (21:43)
[2018-03-27] MEDS ORDERED: ALBUTEROL SO4 8 GM HFA INHALER IH PRN (22:38)
[2018-03-28] MEDS: LEVOTHYROXINE NA 25 MCG TABLET (FP) PO SCH (05:59)
[2018-03-28] MEDS: TAMSULOSIN HCL 0.4 MG CAP PO SCH (08:46)
[2018-03-28] MEDS: LITHIUM CARBONATE 300 MG CAPSULE (FP) PO SCH ×2 (09:46→21:25)
[2018-03-28] MEDS: FLUoxetine HCL 20 MG CAPSULE (FP) PO SCH (09:46)
[2018-03-28] MEDS: DIVALPROEX SODIUM 500 MG TABLET E.C. PO SCH ×2 (09:46→21:26)
[2018-03-28] MEDS: PRENATAL VITAMINS W/ FOLIC ACID TABLET (FP) PO SCH (09:46)
[2018-03-28] MEDS: hydrOXYzine PAMOATE 50 MG CAPSULE (FP) PO PRN (09:47)
[2018-03-28] MEDS: THIAMINE HCL 100 MG TABLET (FP) PO SCH (21:25)
[2018-03-28] MEDS: traZODone HCL 50 MG TABLET (FP) PO SCH (21:26)
[2018-03-29] MEDS: LEVOTHYROXINE NA 25 MCG TABLET (FP) PO SCH (06:26)
[2018-03-29] MEDS: TAMSULOSIN HCL 0.4 MG CAP PO SCH (07:37)
[2018-03-29] MEDS: DIVALPROEX SODIUM 500 MG TABLET E.C. PO SCH ×2 (09:49→22:02)
[2018-03-29] MEDS: LITHIUM CARBONATE 300 MG CAPSULE (FP) PO SCH ×2 (09:49→22:02)
[2018-03-29] MEDS: PRENATAL VITAMINS W/ FOLIC ACID TABLET (FP) PO SCH (09:49)
[2018-03-29] MEDS: FLUoxetine HCL 20 MG CAPSULE (FP) PO SCH (09:49)
[2018-03-29] MEDS: hydrOXYzine PAMOATE 50 MG CAPSULE (FP) PO PRN (09:50)
[2018-03-29] MEDS: traZODone HCL 50 MG TABLET (FP) PO SCH (22:02)
[2018-03-29] MEDS: THIAMINE HCL 100 MG TABLET (FP) PO SCH (22:02)
[2018-03-30] MEDS: LEVOTHYROXINE NA 25 MCG TABLET (FP) PO SCH (06:02)
[2018-03-30] MEDS: TAMSULOSIN HCL 0.4 MG CAP PO SCH (09:30)
[2018-03-30] MEDS: PRENATAL VITAMINS W/ FOLIC ACID TABLET (FP) PO SCH (09:46)
[2018-03-30] MEDS: FLUoxetine HCL 20 MG CAPSULE (FP) PO SCH (09:46)
[2018-03-30] MEDS: DIVALPROEX SODIUM 500 MG TABLET E.C. PO SCH ×2 (09:46→21:28)
[2018-03-30] MEDS: hydrOXYzine PAMOATE 50 MG CAPSULE (FP) PO PRN (09:47)
[2018-03-30] MEDS: LITHIUM CARBONATE 300 MG CAPSULE (FP) PO SCH ×2 (09:47→21:29)
[2018-03-30] MEDS: THIAMINE HCL 100 MG TABLET (FP) PO SCH (21:28)
[2018-03-30] MEDS: traZODone HCL 50 MG TABLET (FP) PO SCH (21:28)
[2018-03-31] MEDS: LEVOTHYROXINE NA 25 MCG TABLET (FP) PO SCH (06:02)
[2018-03-31] MEDS: TAMSULOSIN HCL 0.4 MG CAP PO SCH (08:47)
[2018-03-31] MEDS: PRENATAL VITAMINS W/ FOLIC ACID TABLET (FP) PO SCH (09:47)
[2018-03-31] MEDS: FLUoxetine HCL 20 MG CAPSULE (FP) PO SCH (09:47)
[2018-03-31] MEDS: LITHIUM CARBONATE 300 MG CAPSULE (FP) PO SCH ×2 (09:48→21:40)
[2018-03-31] MEDS: DIVALPROEX SODIUM 500 MG TABLET E.C. PO SCH ×2 (09:48→21:40)
[2018-03-31] MEDS: traZODone HCL 50 MG TABLET (FP) PO SCH (21:40)
[2018-03-31] MEDS: THIAMINE HCL 100 MG TABLET (FP) PO SCH (21:40)
[2018-04-01] MEDS: LEVOTHYROXINE NA 25 MCG TABLET (FP) PO SCH (06:27)
[2018-04-01] MEDS: FLUoxetine HCL 20 MG CAPSULE (FP) PO SCH (09:27)
[2018-04-01] MEDS: DIVALPROEX SODIUM 500 MG TABLET E.C. PO SCH ×2 (09:27→21:39)
[2018-04-01] MEDS: LITHIUM CARBONATE 300 MG CAPSULE (FP) PO SCH ×2 (09:28→21:39)
[2018-04-01] MEDS: TAMSULOSIN HCL 0.4 MG CAP PO SCH (09:28)
[2018-04-01] MEDS: PRENATAL VITAMINS W/ FOLIC ACID TABLET (FP) PO SCH (09:28)
[2018-04-01] MEDS: traZODone HCL 50 MG TABLET (FP) PO SCH (21:39)
[2018-04-01] MEDS: THIAMINE HCL 100 MG TABLET (FP) PO SCH (21:39)
[2018-04-02] MEDS: LEVOTHYROXINE NA 25 MCG TABLET (FP) PO SCH (05:59)
[2018-04-02] MEDS: PRENATAL VITAMINS W/ FOLIC ACID TABLET (FP) PO SCH (09:51)
[2018-04-02] MEDS: FLUoxetine HCL 20 MG CAPSULE (FP) PO SCH (09:51)
[2018-04-02] MEDS: DIVALPROEX SODIUM 500 MG TABLET E.C. PO SCH ×2 (09:51→21:24)
[2018-04-02] MEDS: TAMSULOSIN HCL 0.4 MG CAP PO SCH (09:52)
[2018-04-02] MEDS: LITHIUM CARBONATE 300 MG CAPSULE (FP) PO SCH ×2 (09:52→21:23)
[2018-04-02] MEDS: THIAMINE HCL 100 MG TABLET (FP) PO SCH (21:24)
[2018-04-02] MEDS: traZODone HCL 50 MG TABLET (FP) PO SCH (21:24)
[2018-04-03] MEDS: LEVOTHYROXINE NA 25 MCG TABLET (FP) PO SCH (06:05)
[2018-04-03] MEDS: TAMSULOSIN HCL 0.4 MG CAP PO SCH (08:55)
[2018-04-03] MEDS: PRENATAL VITAMINS W/ FOLIC ACID TABLET (FP) PO SCH (09:46)
[2018-04-03] MEDS: FLUoxetine HCL 20 MG CAPSULE (FP) PO SCH (09:46)
[2018-04-03] MEDS: DIVALPROEX SODIUM 500 MG TABLET E.C. PO SCH ×2 (09:46→21:52)
[2018-04-03] MEDS: LITHIUM CARBONATE 300 MG CAPSULE (FP) PO SCH ×2 (09:46→21:52)
[2018-04-03] MEDS: traZODone HCL 50 MG TABLET (FP) PO SCH (21:52)
[2018-04-03] MEDS: THIAMINE HCL 100 MG TABLET (FP) PO SCH (21:52)
[2018-04-04] MEDS: LEVOTHYROXINE NA 25 MCG TABLET (FP) PO SCH (06:13)
[2018-04-04] MEDS: LITHIUM CARBONATE 300 MG CAPSULE (FP) PO SCH ×2 (09:45→21:02)
[2018-04-04] MEDS: TAMSULOSIN HCL 0.4 MG CAP PO SCH (09:45)
[2018-04-04] MEDS: DIVALPROEX SODIUM 500 MG TABLET E.C. PO SCH ×2 (09:45→21:02)
[2018-04-04] MEDS: FLUoxetine HCL 20 MG CAPSULE (FP) PO SCH (09:45)
[2018-04-04] MEDS: PRENATAL VITAMINS W/ FOLIC ACID TABLET (FP) PO SCH (09:46)
[2018-04-04] MEDS: hydrOXYzine PAMOATE 50 MG CAPSULE (FP) PO PRN (09:47)
[2018-04-04] MEDS: traZODone HCL 50 MG TABLET (FP) PO SCH (21:02)
[2018-04-04] MEDS: THIAMINE HCL 100 MG TABLET (FP) PO SCH (21:02)
[2018-04-05] MEDS: LEVOTHYROXINE NA 25 MCG TABLET (FP) PO SCH (06:13)
[2018-04-05] MEDS: TAMSULOSIN HCL 0.4 MG CAP PO SCH (08:50)
[2018-04-05] MEDS: DIVALPROEX SODIUM 500 MG TABLET E.C. PO SCH ×2 (10:01→21:12)
[2018-04-05] MEDS: FLUoxetine HCL 20 MG CAPSULE (FP) PO SCH (10:01)
[2018-04-05] MEDS: PRENATAL VITAMINS W/ FOLIC ACID TABLET (FP) PO SCH (10:02)
[2018-04-05] MEDS: LITHIUM CARBONATE 300 MG CAPSULE (FP) PO SCH ×2 (10:02→21:12)
[2018-04-05] MEDS: hydrOXYzine PAMOATE 50 MG CAPSULE (FP) PO PRN (10:03)
[2018-04-05] MEDS: traZODone HCL 50 MG TABLET (FP) PO SCH (21:12)
[2018-04-05] MEDS: THIAMINE HCL 100 MG TABLET (FP) PO SCH (21:12)
[2018-04-06] MEDS: LEVOTHYROXINE NA 25 MCG TABLET (FP) PO SCH (06:01)
[2018-04-06] MEDS: TAMSULOSIN HCL 0.4 MG CAP PO SCH (09:30)
[2018-04-06] MEDS: PRENATAL VITAMINS W/ FOLIC ACID TABLET (FP) PO SCH (09:56)
[2018-04-06] MEDS: DIVALPROEX SODIUM 500 MG TABLET E.C. PO SCH ×2 (09:56→22:01)
[2018-04-06] MEDS: FLUoxetine HCL 20 MG CAPSULE (FP) PO SCH (09:57)
[2018-04-06] MEDS: LITHIUM CARBONATE 300 MG CAPSULE (FP) PO SCH ×2 (09:57→22:01)
--- NOTE | 2018-04-06 12:00 | PN ---
Psychiatric Progress Note Vital Signs: Vital Signs Period Temp Pulse Resp BP Sys/Ash Pulse Ox Last 24 Hr 97.2 F 76 18-20 136/77 Date of Session: 04/06/18 Chief Complaint:: Discharge Note HPI: Patient addressing Alcohol Dependence comorbid with Nicotine Dependence, Bipolar Disorder, OCD, Alcohol-Induced Mood Disorder and Alcohol-Induced Sleep Disorder ROS: BPH, COPD, Hypothyroidism were medically managed Current Medications: Active Medications Generic Name Dose Route Start Last Admin Trade Name Freq PRN Reason Stop Dose Admin Acetaminophen 650 mg 03/15/18 16:18 03/23/18 14:39 Tylenol - PO 650 mg Q4H PRN Administration FEVER Al Hydroxide/Mg Hydroxide 30 ml 03/15/18 16:18 Mylanta Oral Suspension - PO Q6H PRN DYSPEPSIA Albuterol Sulfate 2 puff 03/27/18 22:38 Ventolin Hfa Inhaler - IH Q4H PRN SHORT OF BREATH/WHEEZING Divalproex Sodium 1,000 mg 03/18/18 10:00 04/06/18 09:56 Depakote - PO 1,000 mg BID TED Administration Eucalyptus/Menthol/Phenol/Sorbitol 1 each 03/15/18 16:18 Cepastat Lozenge - MM Q4H PRN SORE THROAT Fluoxetine HCl 60 mg 03/16/18 10:00 04/06/18 09:57 Prozac - PO 60 mg DAILY TED Administration Guaifenesin 10 ml 03/15/18 16:18 Robitussin Dm - PO Q6H PRN COUGH Hydroxyzine Pamoate 50 mg 03/15/18 20:18 04/05/18 10:03 Vistaril - PO 50 mg TID PRN Administration ANXIETY Ibuprofen 400 mg 03/15/18 16:18 Motrin - PO Q6H PRN Pain Level 4-6 Levothyroxine Sodium 50 mcg 03/18/18 07:00 04/06/18 06:01 Synthroid - PO 50 mcg ACBK TED Administration [place] Carbonate 600 mg 03/15/18 22:00 04/05/18 21:12 Eskalith - PO 600 mg HS TED Administration [place] Carbonate 300 mg 03/19/18 10:00 04/06/18 09:57 Eskalith - PO 300 mg DAILY TED Administration Loperamide HCl 4 mg 03/15/18 16:18 Imodium - PO Q6H PRN DIARRHEA Magnesium Citrate 300 ml 03/15/18 16:18 Citroma - PO Q48H PRN CONSTIPATION Magnesium Hydroxide 30 ml 03/15/18 16:18 Milk Of Magnesia - PO DAILY PRN CONSTIPATION Melatonin 5 mg 03/15/18 22:00 04/05/18 21:12 Melatonin PO 5 mg HS PRN Administration INSOMNIA Multivit/Folic Acid/Iron 1 tab 03/16/18 10:00 04/06/18 09:56 Vitamins (Sjr) - PO 1 tab DAILY TED Administration Pseudoephedrine/Triprolidine 1 combo 03/15/18 16:18 Actifed - PO TID PRN NASAL CONGESTION Tamsulosin HCl 0.4 mg 03/17/18 10:00 04/06/18 09:30 Flomax - PO 0.4 mg DAILY@0830 TED Administration Thiamine HCl 100 mg 03/15/18 22:00 04/05/18 21:12 Vitamin B1 - PO 100 mg HS TED Administration Trazodone HCl 50 mg 03/18/18 22:00 04/05/18 21:12 Desyrel - PO 50 mg HS TED Administration Current Side Effect: No Lab tests ordered: Yes Lab tests reviewed: Yes Provider note:: Patient will complete this program on 04/07/18. He has met his treatment goals and will continue to address his issues in middle or intermediate [employer] principal residential treatment at [facility] in [place]. Told information writer that from his participation in this program, he has learned the importance of staying away from people, place and things and should not be of ashamed to ask for help since he cannot do it on his own. He responded well to Prozac 60 mg/day , Depakote 1000 mg BID, [place] 300 mg daily & 600 mg HS and Trazadone 50 mg/ hs. Scripts for these medications will be electronically transmitted to [facility] at [address] [place] [address]. He is stable for discharge tomorrow Total face to face time:: 35 Mental Status Exam - Mental Status Exam Alert and Oriented to: Time, Place, Person Cognitive Function: Fair Patient Appearance: Well Groomed Mood: Hopeful, Euthymic Affect: Appropriate Patient Behavior: Cooperative Speech Pattern: Clear Voice Loudness: Normal Thought Process: Intact, Goal Oriented Thought Disorder: Not Present Hallucinations: Denies Suicidal Ideation: Denies Homicidal Ideation: Denies Insight/Judgement: Fair Sleep: Fair Appetite: Good Muscle strength/Tone: Normal Gait/Station: Normal Psychiatric Treatment Plan - Problem List (1) Alcohol dependence Current Visit: Yes (2) Nicotine dependence Current Visit: No Qualifiers: Nicotine product type: cigarettes Substance use status: uncomplicated Qualified Code(s): F17.210 - Nicotine dependence, cigarettes, uncomplicated (3) Bipolar disorder Current Visit: No (4) OCD (obsessive compulsive disorder) Current Visit: Yes (5) Alcohol-induced mood disorder Current Visit: Yes (6) Alcohol-induced sleep disorder Current Visit: Yes (7) BPH (benign prostatic hyperplasia) Current Visit: No Qualifiers: Lower urinary tract symptom presence: symptoms present Lower urinary tract symptom detail: unspecified Qualified Code(s): N40.1 - Benign prostatic hyperplasia with lower urinary tract symptoms (8) COPD (chronic obstructive pulmonary disease) Current Visit: No Qualifiers: COPD type: unspecified COPD Qualified Code(s): J44.9 - Chronic obstructive pulmonary disease, unspecified (9) Hypothyroidism Current Visit: No Qualifiers: Hypothyroidism type: acquired Qualified Code(s): E03.9 - Hypothyroidism, unspecified Initial treatment plan: Patient will be discharged tomorrow and referred to [facility] in [place] for residential treatment
[2018-04-06] MEDS: traZODone HCL 50 MG TABLET (FP) PO SCH (22:01)
[2018-04-06] MEDS: THIAMINE HCL 100 MG TABLET (FP) PO SCH (22:01)
[2018-04-07] MEDS: LEVOTHYROXINE NA 25 MCG TABLET (FP) PO SCH (06:04)
[2018-04-07 06:50] VITALS: BP 130/81; PULSE 67; TEMP 97.8
[2018-04-07] MEDS: TAMSULOSIN HCL 0.4 MG CAP PO SCH (07:35)
[2018-04-07] MEDS ORDERED: PT OWN MED DRAWER 7, Y5N ONE (08:37)
[2018-04-07] MEDS: DIVALPROEX SODIUM 500 MG TABLET E.C. PO SCH (09:04)
[2018-04-07] MEDS: FLUoxetine HCL 20 MG CAPSULE (FP) PO SCH (09:04)
[2018-04-07] MEDS: PRENATAL VITAMINS W/ FOLIC ACID TABLET (FP) PO SCH (09:04)
[2018-04-07] MEDS: LITHIUM CARBONATE 300 MG CAPSULE (FP) PO SCH (09:04)
== END 2018-04-07 08:42 | disposition home or self-care (01) | DRG 772 ==
LOC: YASAS 17:45 → Y3W 17:46
PROVIDERS: ADMIT Psychiatry & Neurology Psychiatry; ATTEND Psychiatry & Neurology Psychiatry
PROC: HZ42ZZZ Group Counseling for Substance Abuse Treatment, Cognitive-Behavioral (ICD-10-PCS; principal; 2018-03-15)
DX: F10.24 Alcohol dependence with alcohol-induced mood disorder (principal); F10.282 Alcohol dependence with alcohol-induced sleep disorder; F17.210 Nicotine dependence, cigarettes, uncomplicated; F31.9 Bipolar disorder, unspecified; F42.9 Obsessive-compulsive disorder, unspecified; E03.9 Hypothyroidism, unspecified; N40.1 Benign prostatic hyperplasia with lower urinary tract symptoms; J44.9 Chronic obstructive pulmonary disease, unspecified; Z59.0 Homelessness